=== PATIENT | female | born 1980 | race African-American/Black ===

== ENCOUNTER 2020-12-05 11:00 | Emergency (ER) | payer OTHER ==
[~2020-12-05] VITALS: Ht 175.3 cm; Wt 61.4 kg
--- NOTE | 2020-12-05 11:25 | NUR ---
ASSUMED CARE OF PT AT THIS TIME FROM LOBBY. AMBULATORY TO ROOM WITH STEADY GAIT. WENDY GONZALEZ AT BEDSIDE FOR EVALUATION. 40 Y/O F PRESENTS STATING "HAD BREAST IMPLANT SURGERY IN SEPTEMBER, EVERYTHING FINE AND THEN LAST NIGHT AROUND 12:30 THE SKIN NEAR MY NIPPLE JUST TORE OPEN AND I CAN SEE THE IMPLANT I THINK." WOUND NOTED TO BREAST. BANDAGE IN PLACE BY WENDY GONZALEZ. CALL LIGHT IN REACH. FALL PRECUATIONS IN PLACE. SIDE RAILS UPX2. A&OX4. WENDY GONZALEZ TO PAGE PT'S SURGEON DR. SU. ASSESSMENT COMPLETED.
--- NOTE | 2020-12-05 11:35 | NUR ---
DR. TERRAZAS AT BEDSIDE FOR EVALUATION
--- NOTE | 2020-12-05 12:06 | NUR ---
AT BEDSIDE DISCUSSING DISCHARGE POC WITH PT.
[2020-12-05 13:02] VITALS: BP 109/65
== END 2020-12-05 13:15 | disposition home or self-care (01) ==
LOC: ED 12:13
DX: T81.33XA Disruption of traumatic injury wound repair, initial encounter (principal); F17.200 Nicotine dependence, unspecified, uncomplicated; Z98.82 Breast implant status; W18.39XA Other fall on same level, initial encounter; Y93.89 Activity, other specified; Y92.89 Other specified places as the place of occurrence of the external cause; Y99.8 Other external cause status; Y83.8 Other surgical procedures as the cause of abnormal reaction of the patient, or of later complication, without mention of misadventure at the time of the procedure
CPT/HCPCS: 99281

== ENCOUNTER 2020-12-13 13:01 | Day surgery (SDC) | payer OTHER ==
[~2020-12-13] VITALS: Ht 22.9 cm; Wt 58.6 kg
--- NOTE | 2020-12-13 13:42 | NUR ---
Pt's chest wall visible through the 1x1.5 inch hole in her left breast. Pt denies pain or SOB. Area clean and dry.
--- NOTE | 2020-12-13 13:48 | NUR ---
Lab at bedside.
--- NOTE | 2020-12-13 13:56 | NUR ---
Dressing applied over wound. Surgeon Dr. Ray will come see pt. in a few hours in ED (he is currently in a procedure).
[2020-12-13 13:58] LABS: BASOPHILS % (AUTO) 1 % (0-1); EOSINOPHILS % (AUTO) 0 % (1-7); LYMPHOCYTES % (AUTO) 20 % (22-44); MD NO; MEAN CORPUSCULAR HEMOGLOBIN 31.8 pg (27.0-34.8); MEAN PLATELET VOLUME 7.7 fL (7.4-10.4); MONOCYTES % (AUTO) 7 % (2-9); NEUTROPHILS % (AUTO) 72 % (42-75); PLATELET COUNT 276 x10^3/uL (130-400); RED BLOOD COUNT 4.65 x10^6/uL (3.82-5.3); RED CELL DISTRIBUTION WIDTH 13.9 % (9.6-15.2)
--- NOTE | 2020-12-13 14:00 | NUR ---
Rapid COVID swabbed and sent to lab.
[2020-12-13 14:08] LABS: CALCIUM 8.8 mg/dL (8.5-10.1); CREATININE 1.17 mg/dL (0.55-1.02)
[2020-12-13 14:15] LABS: ANION GAP 5 mmol/L (5-15); CHLORIDE 110 mmol/L (98-107)
--- NOTE | 2020-12-13 15:04 | NUR ---
Report to JANNETTE To.
--- NOTE | 2020-12-13 16:23 | NUR ---
PT IN BED WITH NO SIGNS OR SYMPTOMS OF ACUTE DISTRESS NOTED RESPIRATIONS EVEN AND UNLABORED DENIES NEED OR DISCOMFORT AT THIS TIME. CALL LIGHT WITHIN REACH. WARM BLANKET PROVIDED. DRESSING AT SITE CDI.
--- NOTE | 2020-12-13 16:36 | NUR ---
PT CONTINUES TO REST COMFORTABLY IN BED WITH NO SIGNS OR SYMPTOMS OF ACUTE DISTRESS NOTED RESPIRATIONS EVEN AND UNLABORED. ALERT AND AWAKE DENIES NEED AT THIS TIME
[2020-12-13 17:22] VITALS: BP 115/71
[2020-12-13] MEDS ORDERED: MIDAZOLAM 1 MG/ML, 2ML ONE (17:49)
[2020-12-13] MEDS ORDERED: FENTANYL PF 250 MCG/5ML ONE (17:49)
--- NOTE | 2020-12-13 17:56 | NUR ---
HEAD BANQUET WAITER/WAITRESS AT BEDSIDE TO TRANSPORT PT. PT ALERT AWAKE AND WITH NO SIGNS OR SYMPTOMS OF ACUTE DISTRESS NOTED RESPIRATIONS EVEN AND UNLABORED
[2020-12-13] MEDS ORDERED: BACITRACIN 50,000 UNIT ONE (18:01)
[2020-12-13] MEDS ORDERED: CEFAZOLIN 1,000 MG ONE ×2 (18:01→18:12)
[2020-12-13] MEDS ORDERED: GENTAMICIN 80 MG/2 ML ONE (18:01)
[2020-12-13] MEDS ORDERED: BUPIVACAINE/PF 0.5% ONE (18:01)
[2020-12-13] MEDS ORDERED: EPINEPHRINE 1 MG/ML, 1ML ONE (18:01)
[2020-12-13] MEDS ORDERED: PROPOFOL 10 MG/ML, 20ML ONE (18:12)
[2020-12-13] MEDS ORDERED: OXYcodone 5 MG/5 ML ORAL.SOL UDC PO PRN (18:30)
[2020-12-13] MEDS ORDERED: LABETALOL 5MG/ML, 20ML IV PRN (18:30)
[2020-12-13] MEDS ORDERED: HYDROmorphone 1 MG/ML, 1ML INJ IVPush PRN (18:30)
[2020-12-13] MEDS ORDERED: ACETAMINOPHEN 325 MG TABLET PO PRN (18:30)
[2020-12-13] MEDS ORDERED: hydrALAzine 20 MG/ML, 1ML IV PRN (18:30)
[2020-12-13] MEDS ORDERED: morphine SULFATE 10 MG/ML, 1ML IVPush PRN (18:30)
[2020-12-13] MEDS ORDERED: ONDANSETRON 2MG/ML, 2ML IVPush PRN (18:30)
[2020-12-13] MEDS ORDERED: MEPERIDINE/PF 25MG/0.5ML IVPush PRN (18:30)
[2020-12-13] MEDS ORDERED: FENTANYL PF 100 MCG/2ML ONE (19:11)
[2020-12-13] MEDS: FENTANYL PF 100 MCG/2ML IV PRN ×2 (19:15→19:37)
[2020-12-13] MEDS ORDERED: OXYcodone 5 MG/5 ML ORAL.SOL UDC ONE (19:26)
[2020-12-13] MEDS ORDERED: IBUP-1223 PO (20:10)
[2020-12-13] MEDS ORDERED: CEPH750C9 PO (20:12)
== END 2020-12-13 21:55 | disposition home or self-care (01) ==
LOC: ED 14:20 → EDIP 17:05 → UNDOADMOB 17:05 → OUT 18:00 → ED 21:55 → OUT 21:55 → ED 12-20 14:20
PROVIDERS: ATTEND Plastic Surgery
DX: T81.31XA Disruption of external operation (surgical) wound, not elsewhere classified, initial encounter (principal); F12.90 Cannabis use, unspecified, uncomplicated; F17.200 Nicotine dependence, unspecified, uncomplicated; Z20.822 Contact with and (suspected) exposure to COVID-19; Z79.899 Other long term (current) drug therapy; Z88.8 Allergy status to other drugs, medicaments and biological substances; Y83.8 Other surgical procedures as the cause of abnormal reaction of the patient, or of later complication, without mention of misadventure at the time of the procedure
CPT/HCPCS: 14301; 36415; 80048; 85025; 87635; 96374; 96375; 99285; C1729; J0171; J0690; J1170; J1580; J2250; J2704; J3010

== ENCOUNTER 2021-05-23 11:07 | Emergency (ER) | payer OTHER ==
[~2021-05-23] VITALS: Ht 175.3 cm; Wt 60.4 kg
[~2021-05-23 11:07] MED LIST: CEPH750C9 PO; IBUP-1223 PO
--- NOTE | 2021-05-23 11:28 | NUR ---
PT HERE FOR C/O LEFT CHEST LUMP, STATES SHE HAD BREAST IMPLANT REMOVED IN NOVEMBER AND HAS NOTICED THE LUMP HAS GROWN.
--- NOTE | 2021-05-23 12:45 | NUR ---
CONSENT FOR U/S GUIDED NEEDLE ASPIRATION SIGNED BY PT.
[2021-05-23] MEDS ORDERED: LIDOCAINE-MPF 1%, 5ML ONE (13:07)
[2021-05-23] MEDS ORDERED: LIDOCAINE-MPF 1%, 2ML ONE (13:07)
--- NOTE | 2021-05-23 13:15 | NUR ---
DR. SHEETS AT BEDSIDE.
[2021-05-23] MEDS ORDERED: LIDOCAINE-MPF 1%, 5ML INFIL ONE (13:30)
[2021-05-23 13:55] VITALS: BP 113/68
== END 2021-05-23 13:58 | disposition home or self-care (01) ==
LOC: ED 12:21
DX: L02.213 Cutaneous abscess of chest wall (principal)
CPT/HCPCS: 10060; 93005; 99284

== ENCOUNTER 2021-06-08 14:18 | Emergency (ER) | payer OTHER ==
[~2021-06-08] VITALS: Ht 175.3 cm; Wt 59.4 kg
--- NOTE | 2021-06-08 14:59 | NUR ---
ASSUMED CARE OF PATIENT. PATIENT REPORTS SHE HAD BREAST AGUMENTATION SURGERY AND HAS BEEN HAVING PAIN AND SWELLING ON HER LEFT BREAST. VS STABLE. NO ACUTE DISTRESS NOTED. CALL ILGHT IN PLACE. WILL CONTINUE TO MONITOR.
--- NOTE | 2021-06-08 15:29 | NUR ---
PT HAS BEEN SEEN BY DR PURDY
--- NOTE | 2021-06-08 15:35 | NUR ---
US IN ROOM
[2021-06-08 17:03] VITALS: BP 108/69
--- NOTE | 2021-06-08 17:03 | NUR ---
PT RESTING IN ROOM. DR PURDY HAS UPDATED PATIENT. NO ACUTE DISTRESS NOTED. CALL LIGHT IN PLACE. WILL CONTINUE TO MONITOR.
--- NOTE | 2021-06-08 17:48 | NUR ---
PT SIGNED OUT AMA. PT REPORTS SHE WILL BE BACK BUT HAS TO LEAVE BECAUSE HER ROOMMATE HAS TO GO TO WORK. DR PURDY AWARE.
== END 2021-06-08 17:51 | disposition left against medical advice (07) ==
LOC: ED 15:01
DX: N61.1 Abscess of the breast and nipple (principal)
CPT/HCPCS: 76642; 99284

== ENCOUNTER 2021-06-09 09:50 | Emergency (ER) | payer OTHER ==
[~2021-06-09] VITALS: Ht 175.3 cm; Wt 60.4 kg
[2021-06-09 09:57] VITALS: BP 115/77
[2021-06-09] MEDS ORDERED: LIDOCAINE-MPF 1%, 5ML ONE ×2 (10:09→10:47)
== END 2021-06-09 12:20 | disposition home or self-care (01) ==
LOC: ED 11:28
DX: N61.1 Abscess of the breast and nipple (principal); N64.89 Other specified disorders of breast
CPT/HCPCS: 10160; 75989; 87070; 87205; 88112; 88305; 99284

== ENCOUNTER 2021-06-18 13:22 | Emergency (ER) | payer OTHER ==
[~2021-06-18] VITALS: Ht 175.3 cm; Wt 59.8 kg
[2021-06-18 13:35] VITALS: BP 112/79
== END 2021-06-18 16:29 | disposition home or self-care (01) ==
LOC: ED 16:20
DX: N64.89 Other specified disorders of breast (principal)
CPT/HCPCS: 76642; 99284

== ENCOUNTER 2021-06-21 16:36 | Emergency (ER) | payer OTHER ==
[~2021-06-21] VITALS: Ht 175.3 cm; Wt 58.9 kg
[2021-06-21 17:20] VITALS: BP 139/85
== END 2021-06-21 18:48 | disposition home or self-care (01) ==
LOC: ED 18:40
DX: L02.213 Cutaneous abscess of chest wall (principal)
CPT/HCPCS: 99283